=== PATIENT | male | born 1940 | race Caucasian/White ===

== ENCOUNTER 2018-01-27 21:20 | Emergency (ER) | payer OTHER ==
[~2018-01-27] VITALS: Ht 177.8 cm; Wt 77.3 kg
[2018-01-27 21:35] VITALS: Ht 177.8 cm; Wt 77.3 kg
[2018-01-27] MEDS ORDERED: KEFLEX500 MG PO (22:17)
[2018-01-27] MEDS ORDERED: ULTRAM50 MG PO (22:18)
[2018-01-27 22:48] VITALS: BP 162/82
== END 2018-01-27 22:50 | disposition home or self-care (01) ==
LOC: D.ER 21:20
DX: L60.0 Ingrowing nail (principal)